=== PATIENT | male | born 1960 | race Caucasian/White ===

== ENCOUNTER 2024-06-15 14:11 | Outpatient (CLI) | payer MEDICARE, MEDICAID, SELFPAY ==
--- NOTE | 2024-06-15 14:30 | MR_ITS ---
WS: [id number] MR CERVICAL SPINE WO/W HISTORY: G35 - Multiple sclerosis TECHNIQUE: Sagittal T1, T2 and T2 inversion recovery; axial T2, T2 gradient and fiesta. Post gadolini um imaging with fat saturation technique. FINDINGS:Straightening of the normal cervical lordosis with mild cervical curve. Disc space narrowing worse at C6-7. Numerous chronic appearing demyelinating plaques within the cervical and upper thorac ic cord. No abnormal gadolinium enhancement. Mild cord atrophy. No enhancing lesions to indicate acti ve disease.. C2-3: Mild facet arthropathy. Mild RIGHT bony foraminal narrowing. C3-4: Moderate to severe RIGHT bony foraminal narrowing. Moderate facet arthropathy. C4-5: Moderate to advanced facet arthropathy. Moderate to severe RIGHT and mild LEFT bony foraminal n arrowing. C5-6: Moderate to advanced facet arthropathy worse on the RIGHT. Mild bilateral bony foraminal narrow ing. C6-7: Disc osteophyte complex with endplate ridging. Disc desiccation. Slight indentation on the cerv ical cord with mild central canal stenosis. Mild bilateral bony foraminal narrowing. Mild facet arthr opathy. C7-T1: Mild bilateral bony foraminal narrowing. Spinal canal is patent. MR/MR cervical spine wo/w [id number] IMPRESSION: 1. Numerous chronic demyelinating plaques in the cervical and upper thoracic c ord. Mild associated cord atrophy. 2. No enhancing lesions to indicate active disease. 3. Mild central canal stenosis C6-7 due to disc osteophyte complex with disc d esiccation. 4. Moderate to severe bony foraminal narrowing RIGHT C3-C4 and RIGHT C4-C5.
--- NOTE | 2024-06-15 15:15 | MR_ITS ---
WS: [id number] MRI THORACIC SPINE WITH CONTRAST TECHNIQUE: Sagittal T1, T2 and STIR imaging. Axial T2 imaging. Post gadolinium imaging was obtained. CLINICAL INFORMATION: G35 - Multiple sclerosis COMPARISON: None. FINDINGS: Mild thoracic curve. No acute compression fractures. No high-grade central canal stenosis. Cord signa l is normal. A few Schmorl's nodes in the mid thoracic spine. Several scattered demyelinating lesions within the thoracic cord most prominent at T5-6, T8-9, and T11-12. No abnormal gadolinium enhancemen t to indicate active disease. No enhancing lesions. Mild cord atrophy. Normal caliber thoracic aorta. Moderate facet arthropathy lower thoracic spine. No significant centra l canal stenosis. Minimal disc bulging in the mid thoracic spine T5-T7. Mild RIGHT T9-T10 and T10-11 bony foraminal narrowing. MR/MR thoracic spine wo/w [id number] IMPRESSION: 1. Several chronic demyelinating plaques within the thoracic cord. No abnormal gadolinium enhancement to indicate active disease. 2. Mild cord atrophy. 3. No other acute findings.
== END 2024-06-15 14:12 | disposition home or self-care (01) ==
PROVIDERS: PCP Nurse Practitioner; Visit Provider Psychiatry & Neurology Neurology
DX: G35 Multiple sclerosis (principal); M99.61 Osseous and subluxation stenosis of intervertebral foramina of cervical region; M51.44 Schmorl's nodes, thoracic region; M46.94 Unspecified inflammatory spondylopathy, thoracic region; M47.892 Other spondylosis, cervical region; M25.78 Osteophyte, vertebrae
CPT/HCPCS: 72156; 72157; A9577

== ENCOUNTER → 2024-06-20 13:49 | Outpatient (BNVA) | payer MEDICARE, MEDICAID, SELFPAY | PROVIDERS: PCP Nurse Practitioner; Visit Provider Podiatrist Foot & Ankle Surgery | DX: G35 Multiple sclerosis (principal); R29.898 Other symptoms and signs involving the musculoskeletal system; M21.371 Foot drop, right foot | CPT/HCPCS: 99203 ==